=== PATIENT | male | born 1990 | race African-American/Black ===

== ENCOUNTER 2017-04-13 03:41 | Emergency (ER) | payer SELFPAY ==
[~2017-04-13] VITALS: Ht 182.9 cm; Wt 100.0 kg
[~2017-04-13 03:41] MED LIST: AMOXICILLIN 50500 MG PO; NO HOME MEDICATIONS
[2017-04-13 03:56] VITALS: BP 145/76; TEMP 98.2
[2017-04-13] MEDS ORDERED: PEN-VEE K500 MG PO (04:58)
[2017-04-13] MEDS ORDERED: NORCO 325 MG-51 TAB PO (04:58)
[2017-04-13 05:07] VITALS: PULSE 68
== END 2017-04-13 05:08 | disposition home or self-care (01) ==
LOC: COL.ER 03:41
DX: K08.89 Other specified disorders of teeth and supporting structures (principal); K03.81 Cracked tooth

== ENCOUNTER 2017-05-16 07:21 | Emergency (ER) | payer SELFPAY ==
[~2017-05-16] VITALS: Ht 185.4 cm; Wt 98.6 kg
[~2017-05-16 07:21] MED LIST changes: +NORCO 325 MG-51 TAB PO; +PEN-VEE K500 MG PO
[2017-05-16 07:22] VITALS: BP 135/97; PULSE 86; TEMP 98.9
[2017-05-16] MEDS ORDERED: PERCOCET 325 MG1 TA2 PO (07:40)
[2017-05-16] MEDS ORDERED: AMOXICILLIN 50500 MG PO (07:40)
== END 2017-05-16 08:00 | disposition home or self-care (01) ==
LOC: COL.ER 07:21
DX: K08.89 Other specified disorders of teeth and supporting structures (principal)

== ENCOUNTER 2018-02-05 13:23 | Emergency (ER) | payer SELFPAY ==
[~2018-02-05] VITALS: Ht 188 cm; Wt 95.5 kg
[~2018-02-05 13:23] MED LIST changes: +PERCOCET 325 MG1 TA2 PO
[2018-02-05 13:49] VITALS: BP 132/88; TEMP 98.4
[2018-02-05 14:56] LABS: BASO % 0.5 % (0.0-2.0); EOS # 0.1 (0.0-0.7); EOS % 2.2 % (0-4.0); GRAN # 1.5 (1.4-6.5); GRAN % 35.1 % (42.2-75.2); HEMATOCRIT 45.7 % (42.0-52.0); HEMOGLOBIN 16.1 g/dl (13.5-18.0); LYMPH # 2.2 (1.2-3.4); LYMPH % 53.5 % (20.0-51.0); MEAN CELL VOLUME 89 fl (80.0-100.0); MEAN CORPUSCULAR HEMOGLOBIN 32 pg (27.0-31.0); MEAN CORPUSCULAR HGB CONC 35 g/dl (33.0-37.0); MEAN PLATELET VOLUME 10.2 fl (7.4-10.4); MONO # 0.3 (0.1-0.6); MONO % 8.2 % (1.7-9.3); PLATELET COUNT 185 K/mm3 (130-400); RED BLOOD COUNT 5.11 M/mm3 (4.20-5.60); REDCELL DISTRIBUTION WIDTH-CV 13.2 % (11.5-14.5)
[2018-02-05 15:14] LABS: ALANINE AMINOTRANSFERASE 67 U/L (21-72); ALBUMIN 4.4 gm/dL (3.5-5.0); ALKALINE PHOSPHATASE 74 U/L (50-136); ANION GAP 12 mmol/L (7-16); AST,SGOT 44 U/L (15-37); BILIRUBIN,TOTAL 0.5 mg/dL (0.0-1.0); BLOOD UREA NITROGEN 8 mg/dL (9-20); CALCIUM 9.6 mg/dL (8.4-10.2); CARBON DIOXIDE 29 mmol/L (22-30); CHLORIDE 103 mmol/L (98-107); CREATININE, serum 0.89 mg/dL (0.66-1.25); GLUCOSE 102 mg/dL (74-106); MAGNESIUM 1.9 mg/dL (1.6-2.3); POTASSIUM 3.9 mmol/L (3.4-5.0); SODIUM 144 mmol/L (137-145); TOTAL PROTEIN 8.8 gm/dL (6.4-8.2)
[2018-02-05 15:15] LABS: C-REACTIVE PROTEIN < 0.5 mg/dL (0.0-0.9)
[2018-02-05 16:02] VITALS: PULSE 74
== END 2018-02-05 16:03 | disposition home or self-care (01) ==
LOC: COL.ER 13:23
PROVIDERS: Physician Assistant
DX: R59.0 Localized enlarged lymph nodes (principal)

== ENCOUNTER 2019-04-03 11:05 | Emergency (ER) | payer SELFPAY ==
[~2019-04-03] VITALS: Ht 185.4 cm; Wt 95.5 kg
[2019-04-03 11:08] VITALS: TEMP 98
[2019-04-03] MEDS ORDERED: BIKTARVY 50-201 EACH PO (11:36)
[2019-04-03] MEDS ORDERED: AMOXICILLIN 50500 MG PO (11:40)
[2019-04-03] MEDS ORDERED: IBU800 M1 PO (11:40)
[2019-04-03 11:43] VITALS: BP 132/78; PULSE 75
== END 2019-04-03 11:50 | disposition home or self-care (01) ==
LOC: COL.ER 11:05
DX: K02.9 Dental caries, unspecified (principal); F17.210 Nicotine dependence, cigarettes, uncomplicated; F12.90 Cannabis use, unspecified, uncomplicated